=== PATIENT | female | born 1995 | race African-American/Black ===

== ENCOUNTER 2021-01-14 03:11 | Emergency (ER) | payer SELFPAY ==
[~2021-01-14] VITALS: Ht 149.9 cm; Wt 47.0 kg
[2021-01-14 04:09] LABS: BASOPHILS % 0.6 % (0.0-2.0); EOSINOPHILS % 1.3 % (0.0-5.0); HEMATOCRIT. 32.5 % (36.0-48.0); HEMOGLOBIN. 10.8 g/dL (12.0-16.0); LYMPHOCYTES % 18.7 % (20.0-50.0); MEAN CORPUSCULAR HEMOGLOBIN 27.1 pg (28.0-32.0); MEAN CORPUSCULAR VOLUME 81.4 fL (81.0-99.0); MEAN PLATELET VOLUME 8.1 fl (7.4-10.4); MONOCYTES % 8.9 % (2.0-8.0); NEUTROPHILS % 70.5 % (40.0-76.0); PLATELET 310 x1000/uL (130-400); RED BLOOD CELL COUNT 3.98 mill/uL (4.2-5.4); RED CELL DISTRIBUTION WIDTH 16.2 % (11.6-14.6)
[2021-01-14 04:14] LABS: CHLORIDE 110 mEq/L (98-107)
[2021-01-14 05:05] VITALS: BP 128/77
== END 2021-01-14 05:19 | disposition home or self-care (01) ==
LOC: ER 03:11
DX: D64.9 Anemia, unspecified (principal); R07.89 Other chest pain; J45.909 Unspecified asthma, uncomplicated
CPT/HCPCS: 36415; 71045; 80053; 81025; 84484; 85025; 85379; 93005; 99285

== ENCOUNTER 2021-01-17 01:19 | Emergency (ER) | payer SELFPAY ==
[~2021-01-17] VITALS: Ht 165.1 cm; Wt 50.0 kg
[2021-01-17 01:22] VITALS: BP 134/84
[2021-01-17] MEDS ORDERED: LORA-249 MT (02:02)
== END 2021-01-17 02:15 | disposition home or self-care (01) ==
LOC: ER 01:19
DX: F41.9 Anxiety disorder, unspecified (principal)
CPT/HCPCS: 99283

== ENCOUNTER 2021-01-17 04:43 | Emergency (ER) | payer SELFPAY ==
[~2021-01-17] VITALS: Ht 165.1 cm; Wt 50.0 kg
[~2021-01-17 04:43] MED LIST: LORA-249 MT
[2021-01-17 04:45] VITALS: BP 127/84
== END 2021-01-17 06:42 | disposition home or self-care (01) ==
LOC: ER 04:43
DX: F41.9 Anxiety disorder, unspecified (principal)
CPT/HCPCS: 99283

== ENCOUNTER 2021-02-15 12:42 | Emergency (ER) | payer SELFPAY ==
[~2021-02-15] VITALS: Ht 167.6 cm; Wt 70.0 kg
[2021-02-15 14:14] LABS: BASOPHILS % 0.6 % (0.0-2.0); EOSINOPHILS % 0.5 % (0.0-5.0); HEMATOCRIT. 34.4 % (36.0-48.0); HEMOGLOBIN. 11.1 g/dL (12.0-16.0); LYMPHOCYTES % 16.9 % (20.0-50.0); MEAN CORPUSCULAR HEMOGLOBIN 26.7 pg (28.0-32.0); MEAN CORPUSCULAR VOLUME 82.5 fL (81.0-99.0); MEAN PLATELET VOLUME 8.3 fl (7.4-10.4); MONOCYTES % 7.1 % (2.0-8.0); NEUTROPHILS % 74.9 % (40.0-76.0); PLATELET 244 x1000/uL (130-400); RED BLOOD CELL COUNT 4.17 mill/uL (4.2-5.4); RED CELL DISTRIBUTION WIDTH 16.4 % (11.6-14.6)
[2021-02-15 14:16] LABS: CHLORIDE 110 mEq/L (98-107)
[2021-02-15 14:26] LABS: B-HCG QUANTITATIVE < 1 mIU/mL (<3)
[2021-02-15 14:54] LABS: CLARITY URINE CLEAR (CLEAR); COLOR URINE YELLOW (YELLOW); KETONES URINE TRACE (NEGATIVE); LEUKOCYTE ESTERASE URINE NEGATIVE (NEGATIVE); NITRITE URINE NEGATIVE (NEGATIVE); OCCULT BLOOD URINE NEGATIVE (NEGATIVE); PH URINE 5.5 (4.5-8.0); PROTEIN URINE 1+ (NEGATIVE); UROBILINOGEN URINE 0.2 E.U./dL (0.2-1.0)
[2021-02-15 15:27] LABS: *BARBITURATES SCREEN URINE NEGATIVE (NEGATIVE); *BENZODIAZEPINES SCREEN URINE NEGATIVE (NEGATIVE); *COCAINE SCREEN URINE NEGATIVE (NEGATIVE); METHADONE URINE SCREEN NEGATIVE (NEGATIVE)
[2021-02-15 15:28] LABS: CANNABINOID URINE SCREEN NEGATIVE (NEGATIVE); OPIATES URINE SCREEN NEGATIVE (NEGATIVE); PHENCYCLIDINE URINE SCREEN NEGATIVE (NEGATIVE)
[2021-02-15 15:30] LABS: *AMPHETAMINES SCREEN URINE PRESUMTIVE POSITIVE (NEGATIVE)
[2021-02-15] MEDS: OLANZAPINE 5MG TABLET PO SCH (17:00)
[2021-02-15] MEDS ORDERED: LORAZEPAM 2MG/ML CPJ IM ONE (18:00)
[2021-02-15] MEDS ORDERED: OLANZAPINE 5MG TABLET PO PRN (20:45)
[2021-02-16] MEDS: OLANZAPINE 5MG TABLET PO SCH (09:00)
[2021-02-16] MEDS ORDERED: OLAN5TAB3 MT (11:46)
[2021-02-16] MEDS ORDERED: LORAZEPAM 2MG/ML CPJ IM ONE (20:00)
[2021-02-16] MEDS ORDERED: DIPHENHYDRAMINE 50MG/ML VIAL IM ONE (20:00)
[2021-02-16] MEDS ORDERED: OLANZAPINE 10 MG/VIAL IM ONE (20:00)
[2021-02-17] MEDS: OLANZAPINE 5MG TABLET PO SCH (09:00)
[2021-02-18] MEDS: OLANZAPINE 5MG TABLET PO SCH (09:07)
[2021-02-19] MEDS: OLANZAPINE 5MG TABLET PO SCH (09:36)
[2021-02-19 11:30] VITALS: BP 132/65
== END 2021-02-19 11:49 | disposition home or self-care (01) ==
LOC: ER 12:42
DX: F23 Brief psychotic disorder (principal); R26.9 Unspecified abnormalities of gait and mobility; R45.851 Suicidal ideations; F15.10 Other stimulant abuse, uncomplicated; F16.10 Hallucinogen abuse, uncomplicated; F17.210 Nicotine dependence, cigarettes, uncomplicated; Z20.822 Contact with and (suspected) exposure to COVID-19; Z75.1 Person awaiting admission to adequate facility elsewhere
CPT/HCPCS: 36415; 76830; 76856; 80053; 80305; 80307; 80329; 81003; 81025; 84702; 85025; 86850; 86900; 86901; 96372; 99285; C9803; J2060; J3490; U0003; U0005; Z7610; J1200

== ENCOUNTER 2021-03-25 03:34 | Emergency (ER) | payer SELFPAY ==
[~2021-03-25] VITALS: Ht 160 cm; Wt 64.0 kg
[~2021-03-25 03:34] MED LIST changes: +OLAN5TAB3 MT
[2021-03-25 03:40] VITALS: BP 180/89
== END 2021-03-25 04:26 | disposition left against medical advice (07) ==
LOC: ER 03:34
DX: F91.9 Conduct disorder, unspecified (principal); R56.9 Unspecified convulsions
CPT/HCPCS: 99283

== ENCOUNTER 2021-05-08 17:54 | Emergency (ER) | payer SELFPAY | END 2021-05-08 18:34 | disposition left against medical advice (07) | LOC: ER 17:54 | DX: Z53.21 Procedure and treatment not carried out due to patient leaving prior to being seen by health care provider (principal) ==

== ENCOUNTER 2021-06-20 23:31 | Emergency (ER) | payer MEDICAID ==
[~2021-06-20] VITALS: Ht 165.1 cm; Wt 89.0 kg
[2021-06-21 00:06] VITALS: BP 127/89
[2021-06-21 03:16] LABS: BASOPHILS % 0.3 % (0.0-2.0); EOSINOPHILS % 0.6 % (0.0-5.0); HEMATOCRIT. 35.8 % (36.0-48.0); HEMOGLOBIN. 11.2 g/dL (12.0-16.0); MEAN CORPUSCULAR HEMOGLOBIN 25.3 pg (28.0-32.0); MEAN CORPUSCULAR VOLUME 81.1 fL (81.0-99.0); MEAN PLATELET VOLUME 8.5 fl (7.4-10.4); MONOCYTES % 9.3 % (2.0-8.0); NEUTROPHILS % 80.8 % (40.0-76.0); PLATELET 250 x1000/uL (130-400); RED BLOOD CELL COUNT 4.42 mill/uL (4.2-5.4); RED CELL DISTRIBUTION WIDTH 17.9 % (11.6-14.6)
[2021-06-21 03:22] LABS: CHLORIDE 106 mEq/L (98-107)
[2021-06-21 03:23] LABS: HCG SCREEN NEGATIVE
[2021-06-21 03:27] LABS: ETHANOL BLOOD < 10 mg/dL
[2021-06-21] MEDS ORDERED: IBUP-2028 MT (04:09)
== END 2021-06-21 05:16 | disposition home or self-care (01) ==
LOC: ER 23:31
DX: R10.31 Right lower quadrant pain (principal); I10 Essential (primary) hypertension
CPT/HCPCS: 36415; 76705; 76830; 76856; 99285